=== PATIENT | male | born 1995 | race Caucasian/White ===

== ENCOUNTER 2021-04-04 09:00 | Inpatient (IN) | payer MEDICAID ==
[~2021-04-04] VITALS: Ht 188 cm; Wt 149.7 kg
--- NOTE | 2021-04-04 09:00 | NUR ---
PT [facility]IBRA 41 FROM [facility] C/O POSSIBLE DRUG OVERDOSE (UNKNOWN DRUG). PT IS AAOX0 RESPOND TO PHYSICAL STIMULI. HOOKED TO O2 AT 3LPM VIA NC, HOOKED TO MANAGER STUDENT SERVICES, KEPT RESTED AND COMFORTABLE. WILL CONTINUE TO MONITOR.
[2021-04-04] MEDS ORDERED: NALOXONE PREFILLED SYRINGE 2 MG/2 ML SYRINGE ONE ×2 (09:03→09:26)
--- NOTE | 2021-04-04 09:05 | NUR ---
IV LINE ESTABLISHED BLOOD DRAWN AND SENT TO LAB.
--- NOTE | 2021-04-04 09:23 | NUR ---
COMMUNICATIONS EXECUTIVE AT THE BEDSIDE
[2021-04-04] MEDS ORDERED: NALOXONE HCL 0.4 MG/ML AMPUL IV ONE (09:30)
[2021-04-04] MEDS ORDERED: IV NS 0.9% 1,000 ML BAG IV ONE ×2 (09:30→11:30)
--- NOTE | 2021-04-04 09:38 | NUR ---
THE PATIENT IS TAKEN TO CT [facility]IA [facility]
--- NOTE | 2021-04-04 09:51 | NUR ---
THE PATIENT IS BACK FROM [facility] VIA [facility]
[2021-04-04 09:56] LABS: BASOPHILS % (AUTO) 0.3 % (0.0-2.0); EOSINOPHILS % (AUTO) 1.1 % (0.0-6.0); HEMATOCRIT 37 % (39-51); HEMOGLOBIN 12.3 g/dL (13.5-17.5); LYMPHOCYTES # (AUTO) 1.9 K/uL (0.8-4.8); LYMPHOCYTES % (AUTO) 26.3 % (20.0-44.0); MEAN CORPUSCULAR HGB CONC 33 g/dl (31.0-36.0); MEAN CORPUSCULAR VOLUME 87 fL (80-96); MONOCYTES # (AUTO) 0.5 K/uL (0.1-1.30); MONOCYTES % (AUTO) 6.6 % (2.0-12.0); NEUTROPHILS # (AUTO) 4.7 K/uL (1.8-8.9); NEUTROPHILS % (AUTO) 65.7 % (43.0-81.0); PLATELET COUNT (AUTO) 267 K/uL (150-450); WHITE BLOOD COUNT (AUTO) 7.2 K/uL (4.3-11.0)
[2021-04-04 09:59] LABS: SERUM AMMONIA 20 umol/L (11-32)
[2021-04-04 10:03] LABS: CALCIUM, SERUM 8.4 mg/dL (8.5-10.1); CARBON DIOXIDE 28 mmol/L (21-32); CHLORIDE 98 mmol/L (98-107); CREATININE 0.8 mg/dL (0.6-1.3); GLUCOSE 104 mg/dL (74-106); POTASSIUM 3.4 mmol/L (3.5-5.1); SODIUM SERUM 136 mmol/L (136-145); UREA NITROGEN, BLOOD 8 mg/dL (7-18)
--- NOTE | 2021-04-04 10:08 | NUR ---
URINE COLLECTED AND SENT TO THE LAB
[2021-04-04 10:15] LABS: ALANINE AMINOTRANSFERASE 22 U/L (12-78); ALBUMIN 3.2 g/dL (3.4-5.0); ALKALINE PHOSPHATASE 70 U/L (46-116); ASPARTATE AMINOTRANSFERASE 11 U/L (15-37); BILIRUBIN,DIRECT 0.1 mg/dL (0.0-0.2); BILIRUBIN,TOTAL 0.3 mg/dL (0.2-1.0)
[2021-04-04 10:16] LABS: ACETAMINOPHEN < 2 ug/ml (10-30); ALCOHOL, BLOOD < 3 mg/dL (0-0)
[2021-04-04 10:22] LABS: THYROID STIMULATING HORMONE 3.538 uIU/mL (0.358-3.74)
[2021-04-04 10:31] LABS: BILIRUBIN,URINE SMALL (NEGATIVE); COLOR,URINE YELLOW (YELLOW); NITRITE, URINE NEGATIVE (NEGATIVE); PROTEIN,URINE 30 mg/dl (NEGATIVE); UGLUCOSE NEGATIVE (NEGATIVE)
[2021-04-04 10:58] LABS: RBC,URINE NONE SEEN /HPF (0-2)
[2021-04-04 10:59] LABS: LEUKOCYTE ESTERASE ,URINE 1+ (NEGATIVE)
[2021-04-04 11:00] LABS: BACTERIA,URINE Rare /HPF (None Seen); SQUAMOUS EPITHELIAL CELL,UR Few /HPF (None Seen)
--- NOTE | 2021-04-04 11:27 | NUR ---
MOVE SHEET SUBMITTED AND CALLED FOR TELE BED.
[2021-04-04] MEDS ORDERED: CEFTRIAXONE 1GM BAG (ER ONLY) 50 ML IV ONE ×2 (11:30→11:37)
[2021-04-04] MEDS ORDERED: Magnesium 1GM/D5W 100ML PREMIX 100 ML IV SCH (11:30)
[2021-04-04] MEDS ORDERED: AZITHROMYCIN 500 MG in IV D5W 250 ML IV ONE (11:30)
--- NOTE | 2021-04-04 11:31 | NUR ---
[facility] CALLED MOTOR SETTER PAGED.
[2021-04-04] MEDS ORDERED: Magnesium 1GM/D5W 100ML PREMIX 100 ML IV ONE (13:24)
--- NOTE | 2021-04-04 16:26 | NUR ---
PT GOING TO 312.2
--- NOTE | 2021-04-04 16:42 | NUR ---
REPORT GIVEN TO NURSE TURNER FOR KEREN
--- NOTE | 2021-04-04 17:51 | NUR ---
THE PATIENT IS TRANSFERED TO ROOM 312-2 IN STABLE CONDITION AND PER POLICY
--- NOTE | 2021-04-04 18:00 | NUR ---
COMMISSIONS SPECIALIST NOTES RECEIVED PT FROM E.R. STAFF VIA [employer], PT IS AWAKE, APPEARS TO BE LISTENING BUT DOES NOT SPEAK AT THE TIME, ASSISTED TO BED, MADE COMFORTABLE, PT HAS INTERMITTENT EPISODES OF SLEEPINESS/LETHARGY AND BEING AWAKE AND TRIES TO SPEAK, NOT IN DISTRESS, NO FACIAL GRIMACING OR MOANING, PLACED ON TELEMETRY MONITORING, ON SINUS RHYTHM ON THE 90'S, TOLERATES ROOM AIR, KEPT WARM AND COMFORTABLE IN BED, VITAL SIGNS TAKEN AND RECORDED.
[2021-04-04 18:15] VITALS: BP 112/74
[2021-04-04] MEDS ORDERED: IV NS 0.9% 1,000 ML IV PRN (18:30)
[2021-04-04] MEDS ORDERED: ACETAMINOPHEN 325 MG TABLET PO PRN (18:30)
[2021-04-04] MEDS ORDERED: ZOLPIDEM TARTRATE 5 MG TABLET PO PRN (18:30)
[2021-04-04] MEDS ORDERED: ONDANSETRON HCL/PF 4 MG/2 ML VIAL IVP PRN (18:30)
--- NOTE | 2021-04-04 19:18 | NUR ---
RN MS NOTES PT IN BED, RESTING, NO SIGN OF DISTRESS OR PAIN, AROUSABLE TO VERBAL AND PAINFUL STIMULI, BED ALARM ON FOR SAFETY, ADMITTING ORDERS RECEIVED FROM MD, ENDORSED TO HASHER OPERATOR RN FOR CONTINUITY OF CARE.
--- NOTE | 2021-04-04 19:31 | NUR ---
MS OPENING NOTE PATIENT RECEIVED AWAKE IN BED. A/OX1. NO S/S PF DISTRESS, BREATHING UNLABORED. LAC #18 RUNNING NS @ 75ML/HR. SAFETY MEASURES IN PLACE: BED AT LOWEST POSITION, RAILS UP X2, CALL KNIGHT WITHIN REACH. WILL CONTINUE TO MONITOR.
[2021-04-04] MEDS: ENOXAPARIN SODIUM 40 MG/0.4 ML DISP.SYRIN SQ SCH (21:46)
[2021-04-05 04:00] VITALS: BP 103/59
[2021-04-05 06:36] LABS: BASOPHILS % (AUTO) 0.5 % (0.0-2.0); EOSINOPHILS % (AUTO) 1.7 % (0.0-6.0); HEMATOCRIT 39 % (39-51); HEMOGLOBIN 12.6 g/dL (13.5-17.5); LYMPHOCYTES # (AUTO) 2.1 K/uL (0.8-4.8); LYMPHOCYTES % (AUTO) 23.4 % (20.0-44.0); MEAN CORPUSCULAR HGB CONC 33 g/dl (31.0-36.0); MEAN CORPUSCULAR VOLUME 88 fL (80-96); MONOCYTES # (AUTO) 0.8 K/uL (0.1-1.30); MONOCYTES % (AUTO) 8.8 % (2.0-12.0); NEUTROPHILS # (AUTO) 5.9 K/uL (1.8-8.9); NEUTROPHILS % (AUTO) 65.6 % (43.0-81.0); PLATELET COUNT (AUTO) 277 K/uL (150-450)
--- NOTE | 2021-04-05 06:41 | NUR ---
MS RN CLOSING NOTE PATIENT ASLEEP IN BED. A/OX1. NO S/S OF DISTRESS, BREATHING UNLABORED. LAC #18 INTACT AND PATENT RUNNING W/ NS 75ML/HR. SAFETY MEASURES IN PLACE: BED AT LOWEST POSITION, RAILS UP X2, CALL KNIGHT WITHIN REACH. WILL ENDORSE TO NEXT SHIFT FOR KEREN.
[2021-04-05 06:56] LABS: CALCIUM, SERUM 8.9 mg/dL (8.5-10.1); CREATININE 0.7 mg/dL (0.6-1.3); MAGNESIUM 2.3 mg/dL (1.8-2.4); PHOSPHORUS 3.7 mg/dL (2.5-4.9); POTASSIUM 4.1 mmol/L (3.5-5.1)
--- NOTE | 2021-04-05 07:20 | NUR ---
MS RN OPENING NOTE RECEIVED PATIENT AWAKE IN BED. PATIENT IS A/OX1. PATIENT IS ON ROOM AIR WITH NO S/S OF RESPIRATORY DISTRESS.WITH LEFT AC G#18 RUNNING NS @ 75ML/HR. WITH TERRY CATHETER TO URINE BAG, WITH YELLOWISH URINE DRAINING TO URINE BAG. SAFETY MEASURES IN PLACE: BED AT LOWEST POSITION, RAILS UP X2, CALL KNIGHT WITHIN REACH. WILL CONTINUE TO MONITOR.
[2021-04-05] MEDS: risperiDONE-M 0.5 MG TAB.RAPDIS PO SCH ×2 (13:23→17:29)
--- NOTE | 2021-04-05 19:00 | NUR ---
MS RN CLOSING NOTE PATIENT AWAKE IN BED. PATIENT IS A/OX1. PATIENT IS ON ROOM AIR WITH NO S/S OF RESPIRATORY DISTRESS.WITH LEFT AC G#18 ON SALINE LOCK. PATIENT REFUSED IV FLUIDS. WITH TERRY CATHETER REMOVED, TOLERATED WELL. SAFETY MEASURES IN PLACE: BED AT LOWEST POSITION, RAILS UP X2, CALL KNIGHT WITHIN REACH. FOR SAFETY MONITORING WILL ENDORSE PATIENT FOR CONTINUITY OF CARE.
[2021-04-05 20:00] VITALS: BP 140/88
[2021-04-05] MEDS: ENOXAPARIN SODIUM 40 MG/0.4 ML DISP.SYRIN SQ SCH (21:40)
--- NOTE | 2021-04-06 06:30 | NUR ---
RN CLOSING NOTE PT IN STABLE CONDITION. WILL ENDORSE TO AM RN FOR KEREN.
[2021-04-06 06:55] LABS: BASOPHILS % (AUTO) 0.3 % (0.0-2.0); EOSINOPHILS % (AUTO) 1.3 % (0.0-6.0); HEMATOCRIT 39 % (39-51); HEMOGLOBIN 12.6 g/dL (13.5-17.5); LYMPHOCYTES # (AUTO) 1.8 K/uL (0.8-4.8); LYMPHOCYTES % (AUTO) 25.3 % (20.0-44.0); MEAN CORPUSCULAR HGB CONC 32 g/dl (31.0-36.0); MEAN CORPUSCULAR VOLUME 88 fL (80-96); MONOCYTES # (AUTO) 0.6 K/uL (0.1-1.30); MONOCYTES % (AUTO) 8.1 % (2.0-12.0); NEUTROPHILS # (AUTO) 4.7 K/uL (1.8-8.9); PLATELET COUNT (AUTO) 257 K/uL (150-450); RED BLOOD CELL COUNT(AUTO) 4.43 MIL/uL (4.5-6.0); WHITE BLOOD COUNT (AUTO) 7.2 K/uL (4.3-11.0)
[2021-04-06 07:31] LABS: CREATININE 0.8 mg/dL (0.6-1.3); MAGNESIUM 2.2 mg/dL (1.8-2.4); PHOSPHORUS 3.3 mg/dL (2.5-4.9); POTASSIUM 3.8 mmol/L (3.5-5.1)
--- NOTE | 2021-04-06 07:33 | NUR ---
MS RN OPENING NOTE RECEIVED PATIENT AWAKE IN BED. PATIENT IS A/O X 1. PATIENT IS ON ROOM AIR WITH NO S/S OF RESPIRATORY DISTRESS. IV REMOVED BY PATIENT DURING NIGHT AND NO IV ACCESS AT THIS TIME. NO TERRY CATHETER. SAFETY MEASURES IN PLACE: BED AT LOWEST POSITION, RAILS UP X2, CALL KNIGHT WITHIN REACH. WILL CONTINUE TO MONITOR.
[2021-04-06 08:00] VITALS: BP 132/82
[2021-04-06] MEDS ORDERED: risperiDONE-M 0.5 MG TAB.RAPDIS PO SCH (09:00)
[2021-04-06] MEDS ORDERED: RISP2TAB5 PO (13:48)
--- NOTE | 2021-04-06 14:34 | NUR ---
Pt.'s brother [[phone]] is picking pt. up at 1530.
--- NOTE | 2021-04-06 16:09 | NUR ---
RN NOTES PT DISCHARGED HOME IN STABLE CONDITION. PT NOW IS A/O X2-3 WITH PERIODS OF FORGETFULNESS AND CONFUSION NOTED. V/S STABLE AND RECORDED. PT REFUSED PHOTOGRAPH OF SKIN ISSUES PRIOR TO DISCHARGE. PT DISCHARGED WITH ALL BELONGINGS, LIST OF BELONGINGS SIGNED AND CONFIRMED WITH PATIENT. PATIENT DISCHARGED WITH NO IV ACCESS. NAME ARM BAND REMOVED. HEALTH TEACHING AND DISCHARGE INSTRUCTIONS PROVIDED TO PATIENT AND HIS BROTHER СЕРГЕЙ. BOTH VERBALIZED UNDERSTANDING. EXIT FOLDER AND PRESCRIPTION (RISPIRADONE) PROVIDED TO PATIENT'S BROTHER СЕРГЕЙ. PATIENT LEFT HOSPITAL AT 1600 WITH BROTHOMKAR RUSHING. MD AND CHARGE NURSE AWARE OF DISCHARGE.
== END 2021-04-06 16:20 | disposition home or self-care (01) | DRG 422 ==
LOC: EDBD 09:03 → ER 09:03 → MED 16:29
PROVIDERS: ADMIT Nurse Practitioner Acute Care; ATTEND Nurse Practitioner Acute Care
DX: E86.0 Dehydration (principal); G92.8 Other toxic encephalopathy; E87.2 Acidosis; D68.59 Other primary thrombophilia; E44.1 Mild protein-calorie malnutrition; E88.09 Other disorders of plasma-protein metabolism, not elsewhere classified; F29 Unspecified psychosis not due to a substance or known physiological condition; E87.6 Hypokalemia; Z20.822 Contact with and (suspected) exposure to COVID-19; F20.9 Schizophrenia, unspecified; E66.01 Morbid (severe) obesity due to excess calories; Z68.41 Body mass index [BMI] 40.0-44.9, adult; F19.90 Other psychoactive substance use, unspecified, uncomplicated
CPT/HCPCS: 36415; 70450-TC; 71045-TC; 80048-TC; 80061-TC; 80076-TC; 81001; 82140-TC; 82962-TC; 83605-TC; 83735-TC; 84100-TC; 84443-TC; 84484-TC; 85025-TC; 85730-TC; 87040-TC; 87081-TC; 87086-TC; 97116-TC; 97530-TC; C9803; G0378; G0480; J0456; J0696; J1650; J2310; J3475; J7030; J7060